=== PATIENT | female | born 1950 | race Caucasian/White ===

== ENCOUNTER 2018-04-15 12:28 | Inpatient (IN) | payer MEDICARE, OTHER ==
[~2018-04-15] VITALS: Ht 162.6 cm; Wt 107.7 kg
[2018-04-15] MEDS ORDERED: SODIUM CHLORIDE FLUSH 10ML SYR IVF ONE (13:30)
[2018-04-15 13:43] LABS: BASOPHILS # (AUTO) 0.04 x10^3/uL (0-0.1); BASOPHILS % (AUTO) 1 % (0-1); EOSINOPHILS # (AUTO) 0.01 x10^3/uL (0-0.4); EOSINOPHILS % (AUTO) 0 % (1-7); LYMPHOCYTES % (AUTO) 12 % (22-44); MD NO; MEAN CORPUSCULAR HEMOGLOBIN 25.5 pg (27.0-34.8); MEAN CORPUSCULAR HGB CONC 31.3 g/dL (32.4-35.8); MEAN CORPUSCULAR VOLUME 81.6 fL (80-100); MEAN PLATELET VOLUME 7.7 fL (7.4-10.4); MONOCYTES # (AUTO) 1.12 x10^3/uL (0.2-0.8); MONOCYTES % (AUTO) 15 % (2-9); NEUTROPHILS # (AUTO) 5.57 x10^3/uL (1.8-6.8); NEUTROPHILS % (AUTO) 73 % (42-75); PLATELET COUNT 253 x10^3/uL (130-400); RED BLOOD COUNT 3.62 x10^6/uL (3.82-5.3)
[2018-04-15 13:44] LABS: ALANINE AMINOTRANSFERASE 20 U/L (12-78); ALBUMIN 2.9 g/dL (3.4-5.0); ANION GAP 13 mmol/L (5-15); CALCIUM 9.4 mg/dL (8.5-10.1); CHLORIDE 105 mmol/L (98-107); CREATININE 1.64 mg/dL (0.55-1.02)
[2018-04-15 13:48] LABS: ALKALINE PHOSPHATASE 96 U/L (45-117); BILIRUBIN,TOTAL 0.6 mg/dL (0.2-1.0); TOTAL PROTEIN 6.1 g/dL (6.4-8.2); TROPONIN I < 0.015 ng/mL (0.000-0.045)
[2018-04-15 14:46] LABS: ACETONE, SERUM Moderate(40mg/dL) mg/dL (Negative)
[2018-04-15 14:54] LABS: HEMOGLOBIN A1C 9.2 % (4.2-6.3)
[2018-04-15 15:14] LABS: MICROSCOPIC INDICATED
[2018-04-15 15:15] LABS: CULTURE INDICATED? YES
[2018-04-15] MEDS ORDERED: SODIUM CHLORIDE 0.9% 1,000ML IVBOLUS ONE (16:00)
[2018-04-15] MEDS ORDERED: SODIUM CHLORIDE FLUSH 10ML SYR IVF PRN (16:00)
[2018-04-15] MEDS: SODIUM CHLORIDE 0.9% 1,000 ML IV SCH ×2 (16:21→22:40)
[2018-04-15] MEDS ORDERED: DEXTROSE 4 GM TAB.CHEW PO PRN (16:30)
[2018-04-15] MEDS ORDERED: DEXTROSE 50%, 50ML SYRINGE IVPush PRN (16:30)
[2018-04-15] MEDS ORDERED: POTASSIUM PHOS 4.4 MEQ/ML IV ONE (16:30)
[2018-04-15] MEDS ORDERED: morphine SULFATE 10 MG/ML, 1ML IVPush PRN (16:30)
[2018-04-15] MEDS ORDERED: MAGNESIUM SULFATE PMX 2GM/50ML 50 ML IV ONE (16:30)
[2018-04-15] MEDS ORDERED: DOCUSATE 100 MG CAPSULE PO PRN (16:30)
[2018-04-15] MEDS ORDERED: POLYETHYLENE GLYCOL 17 GM PACKET PO PRN (16:30)
[2018-04-15] MEDS ORDERED: GLUCAGON 1 MG IM PRN (16:30)
[2018-04-15] MEDS: INSULIN LISPRO 100 UNITS/ML, PEN SQ-INSULIN SCH ×2 (16:30→22:41)
[2018-04-15] MEDS ORDERED: ONDANSETRON 2MG/ML, 2ML IVPush PRN (16:30)
[2018-04-15] MEDS ORDERED: PLEASE ENTER ALLERGIES MC SCH (17:00)
[2018-04-15] MEDS: PLEASE ENTER ALLERGIES MC SCH ×4 (18:30→21:30)
[2018-04-15 19:41] VITALS: BP 124/73
[2018-04-15] MEDS ORDERED: POTASSIUM PHOSPHATE 22 MEQ in SODIUM CHLORIDE 0.9% 500 ML IV ONE (22:00)
[2018-04-15] MEDS: CEFTRIAXONE PMX 1GM/50ML 50 ML IV SCH (22:40)
[2018-04-15] MEDS: SODIUM CHLORIDE FLUSH 10ML SYR IVF SCH (22:40)
[2018-04-16] MEDS: INSULIN LISPRO 100 UNITS/ML, PEN SQ-INSULIN SCH ×5 (00:30→21:57)
[2018-04-16 02:06] VITALS: BP 111/69
[2018-04-16 03:21] VITALS: BP 121/70
[2018-04-16 03:23] LABS: BASOPHILS # (AUTO) 0.03 x10^3/uL (0-0.1); BASOPHILS % (AUTO) 0 % (0-1); EOSINOPHILS # (AUTO) 0.04 x10^3/uL (0-0.4); EOSINOPHILS % (AUTO) 1 % (1-7); LYMPHOCYTES # (AUTO) 0.97 x10^3/uL (1-3.4); LYMPHOCYTES % (AUTO) 12 % (22-44); MD NO; MEAN CORPUSCULAR HEMOGLOBIN 26.1 pg (27.0-34.8); MEAN CORPUSCULAR HGB CONC 32.1 g/dL (32.4-35.8); MEAN CORPUSCULAR VOLUME 81.3 fL (80-100); MEAN PLATELET VOLUME 7.7 fL (7.4-10.4); MONOCYTES # (AUTO) 1.32 x10^3/uL (0.2-0.8); MONOCYTES % (AUTO) 16 % (2-9); NEUTROPHILS # (AUTO) 6.13 x10^3/uL (1.8-6.8); NEUTROPHILS % (AUTO) 72 % (42-75); PLATELET COUNT 259 x10^3/uL (130-400); RED BLOOD COUNT 3.87 x10^6/uL (3.82-5.3); RED CELL DISTRIBUTION WIDTH 20.6 % (9.6-15.2)
[2018-04-16 03:30] LABS: ANION GAP 11 mmol/L (5-15); CALCIUM 9.3 mg/dL (8.5-10.1); CHLORIDE 103 mmol/L (98-107); CREATININE 1.39 mg/dL (0.55-1.02)
[2018-04-16 07:29] VITALS: BP 117/76
[2018-04-16] MEDS: ACETAMINOPHEN 325 MG TABLET PO PRN (10:57)
[2018-04-16] MEDS: NS + 20MEQ KCL 1,000 ML IV SCH (10:57)
[2018-04-16] MEDS: SENNA/DOCUSATE TABLET PO SCH (10:57)
[2018-04-16] MEDS: SODIUM CHLORIDE FLUSH 10ML SYR IVF SCH ×2 (10:58→21:57)
[2018-04-16 14:45] VITALS: BP 120/69
[2018-04-16] MEDS ORDERED: LIDOCAINE-MPF 1%, 5ML ONE (16:25)
[2018-04-16 20:12] VITALS: BP 140/78
[2018-04-16] MEDS: CEFTRIAXONE PMX 1GM/50ML 50 ML IV SCH (21:56)
[2018-04-16] MEDS: INSULIN GLARGINE 100 UNITS/ML, PEN SQ-INSULIN SCH (21:56)
[2018-04-17 00:47] VITALS: BP 123/75
[2018-04-17] MEDS: OXYcodone IR 5MG TABLET PO PRN ×4 (03:00→20:37)
[2018-04-17] MEDS: INSULIN LISPRO 100 UNITS/ML, PEN SQ-INSULIN SCH ×5 (03:01→20:00)
[2018-04-17] MEDS: NS + 20MEQ KCL 1,000 ML IV SCH (04:08)
[2018-04-17 05:33] LABS: CHLORIDE 105 mmol/L (98-107)
[2018-04-17 05:38] LABS: ANION GAP 12 mmol/L (5-15); CALCIUM 9.5 mg/dL (8.5-10.1); CREATININE 1.04 mg/dL (0.55-1.02)
[2018-04-17 07:40] VITALS: BP 131/82
[2018-04-17] MEDS: SENNA/DOCUSATE TABLET PO SCH (08:29)
[2018-04-17] MEDS: SODIUM CHLORIDE FLUSH 10ML SYR IVF SCH ×2 (08:30→20:36)
[2018-04-17 13:15] VITALS: BP 129/82
[2018-04-17] MEDS: ACETAMINOPHEN 325 MG TABLET PO PRN ×2 (15:29→20:37)
[2018-04-17 20:23] VITALS: BP 134/76
[2018-04-17] MEDS: CEFTRIAXONE PMX 1GM/50ML 50 ML IV SCH (20:36)
[2018-04-17] MEDS: INSULIN GLARGINE 100 UNITS/ML, PEN SQ-INSULIN SCH (20:36)
[2018-04-18] MEDS: INSULIN LISPRO 100 UNITS/ML, PEN SQ-INSULIN SCH ×6 (00:59→22:03)
[2018-04-18] MEDS: OXYcodone IR 5MG TABLET PO PRN ×5 (00:59→23:56)
[2018-04-18 03:23] VITALS: BP 136/79
[2018-04-18 06:49] VITALS: BP 129/76
[2018-04-18] MEDS: SODIUM CHLORIDE FLUSH 10ML SYR IVF SCH ×2 (09:26→22:04)
[2018-04-18] MEDS: SENNA/DOCUSATE TABLET PO SCH (09:26)
[2018-04-18] MEDS: ACETAMINOPHEN 325 MG TABLET PO PRN ×3 (09:26→23:56)
[2018-04-18 12:24] VITALS: BP 123/78
[2018-04-18] MEDS ORDERED: SULF1TAB24 PO (17:38)
[2018-04-18 20:01] VITALS: BP 127/78
[2018-04-18] MEDS: CEFTRIAXONE PMX 1GM/50ML 50 ML IV SCH (22:01)
[2018-04-18] MEDS: INSULIN GLARGINE 100 UNITS/ML, PEN SQ-INSULIN SCH (22:04)
[2018-04-19 01:26] VITALS: BP 125/74
[2018-04-19] MEDS: INSULIN LISPRO 100 UNITS/ML, PEN SQ-INSULIN SCH ×3 (01:57→10:14)
[2018-04-19] MEDS: OXYcodone IR 5MG TABLET PO PRN ×2 (04:01→09:39)
[2018-04-19] MEDS: ACETAMINOPHEN 325 MG TABLET PO PRN (04:01)
[2018-04-19 06:56] VITALS: BP 121/78
[2018-04-19] MEDS: SENNA/DOCUSATE TABLET PO SCH (09:39)
[2018-04-19] MEDS: SODIUM CHLORIDE FLUSH 10ML SYR IVF SCH (09:40)
== END 2018-04-19 11:53 | disposition home health service (06) | DRG 840 ==
LOC: ED 12:59 → EDIP 15:44 → SUATTDRO 16:09 → 3NW 17:51
PROVIDERS: ADMIT Family Medicine; ATTEND Family Medicine
PROC: 0T9B70Z Drainage of Bladder with Drainage Device, Via Natural or Artificial Opening (ICD-10-PCS; 2018-04-15)
PROC: 0JB83ZX Excision of Abdomen Subcutaneous Tissue and Fascia, Percutaneous Approach, Diagnostic (ICD-10-PCS; principal; 2018-04-16)
PROC: 5A09357 Assistance with Respiratory Ventilation, Less than 24 Consecutive Hours, Continuous Positive Airway Pressure (ICD-10-PCS; 2018-04-19)
DX: C83.30 Diffuse large B-cell lymphoma, unspecified site (principal); E11.10 Type 2 diabetes mellitus with ketoacidosis without coma; N17.0 Acute kidney failure with tubular necrosis; N39.0 Urinary tract infection, site not specified; D62 Acute posthemorrhagic anemia; R65.10 Systemic inflammatory response syndrome (SIRS) of non-infectious origin without acute organ dysfunction; R19.04 Left lower quadrant abdominal swelling, mass and lump; E65 Localized adiposity; R29.6 Repeated falls; R00.0 Tachycardia, unspecified; E11.65 Type 2 diabetes mellitus with hyperglycemia; N18.9 Chronic kidney disease, unspecified; E11.22 Type 2 diabetes mellitus with diabetic chronic kidney disease; E86.0 Dehydration; Z90.710 Acquired absence of both cervix and uterus; Z92.21 Personal history of antineoplastic chemotherapy; Z90.49 Acquired absence of other specified parts of digestive tract
CPT/HCPCS: 36415; 71045; 76942; 80048; 80053; 81001; 82010; 82800; 82962; 83036; 83605; 83735; 84100; 84484; 85025; 87040; 87070; 87075; 87077; 87086; 87186; 87205; 88305; 88341; 88342; 88360; 93005; 99285; G0378; J0696; J2405; J3480; J1815; J2270; J3475; J7030; J7040; L3908